=== PATIENT | female | born 1975 | race Caucasian/White ===

== ENCOUNTER 2023-10-31 06:49 | Day surgery (SDC) | payer OTHER ==
[~2023-10-31] VITALS: Ht 160 cm; Wt 79.4 kg
[2023-10-31] MEDS ORDERED: MEPERIDINE 100 MG INJ. 100 MG/ML VIAL ONE (07:25)
[2023-10-31] MEDS ORDERED: MIDAZOLAM HCL 5 MG/5 ML VIAL ONE ×2 (07:25→08:38)
[2023-10-31 08:36] VITALS: O2SAT 97
[2023-10-31] MEDS ORDERED: DIPHENHYDRAMINE INJ 50 MG/ML VIAL ONE (08:39)
[2023-10-31 14:05] VITALS: BP_SYST 121; PULSE 74; RESP 17
== END 2023-10-31 10:20 | disposition home or self-care (01) ==
LOC: SDS 06:49 → SMU 06:51 → SDS 10:20
PROVIDERS: ATTEND Student in an Organized Health Care Education/Training Program
DX: K59.00 Constipation, unspecified (principal); D12.2 Benign neoplasm of ascending colon; D12.4 Benign neoplasm of descending colon; K29.50 Unspecified chronic gastritis without bleeding; K21.9 Gastro-esophageal reflux disease without esophagitis; K64.8 Other hemorrhoids; Z90.710 Acquired absence of both cervix and uterus; Z90.89 Acquired absence of other organs; Z79.899 Other long term (current) drug therapy; Z86.010 Personal history of colon polyps
CPT/HCPCS: 45385; 43239; 82948; 88305; 88312; 88313; 99153; 99152; G0378; J1200; J2250; J2175